=== PATIENT | male | born 1970 | race Two or more races ===

== ENCOUNTER → 2020-09-14 | Outpatient (CLI) | payer MEDICARE | END | disposition home or self-care (01) | LOC: MSC 13:30 | PROVIDERS: ATTEND Anesthesiology | DX: G89.4 Chronic pain syndrome (principal); M54.16 Radiculopathy, lumbar region; M79.606 Pain in leg, unspecified; M62.830 Muscle spasm of back; F11.20 Opioid dependence, uncomplicated ==

== ENCOUNTER → 2021-05-17 | Outpatient (CLI) | payer MEDICARE | END | disposition home or self-care (01) | LOC: MSC 10:25 | PROVIDERS: ATTEND Anesthesiology | DX: G89.4 Chronic pain syndrome (principal); M54.16 Radiculopathy, lumbar region; M62.830 Muscle spasm of back; M25.561 Pain in right knee; M25.562 Pain in left knee; M65.4 Radial styloid tenosynovitis [de Quervain]; F11.20 Opioid dependence, uncomplicated ==

== ENCOUNTER 2021-06-14 09:10 | Outpatient (CLI) | payer MEDICARE, MEDICAID | END 2021-06-14 23:59 | LOC: MSC 09:10 | PROVIDERS: ATTEND Anesthesiology | DX: G89.4 Chronic pain syndrome (principal); M25.561 Pain in right knee; M25.562 Pain in left knee; M54.16 Radiculopathy, lumbar region; M62.830 Muscle spasm of back; M79.606 Pain in leg, unspecified; M25.519 Pain in unspecified shoulder; M65.4 Radial styloid tenosynovitis [de Quervain]; F11.20 Opioid dependence, uncomplicated; Z76.0 Encounter for issue of repeat prescription; Z99.3 Dependence on wheelchair ==

== ENCOUNTER → 2021-07-12 | Outpatient (CLI) | payer MEDICARE, OTHER | LOC: MSC 10:20 | PROVIDERS: ATTEND Anesthesiology | DX: M65.4 Radial styloid tenosynovitis [de Quervain] (principal); G89.4 Chronic pain syndrome; M25.562 Pain in left knee; M25.561 Pain in right knee; M79.606 Pain in leg, unspecified; M54.16 Radiculopathy, lumbar region; M62.830 Muscle spasm of back; F11.20 Opioid dependence, uncomplicated ==

== ENCOUNTER 2021-08-16 09:25 | Outpatient (CLI) | payer MEDICARE, OTHER | END 2021-08-16 23:59 | LOC: MSC 09:25 | PROVIDERS: ATTEND Anesthesiology | DX: M54.16 Radiculopathy, lumbar region (principal); M62.830 Muscle spasm of back; G89.4 Chronic pain syndrome; M79.606 Pain in leg, unspecified; M25.561 Pain in right knee; M25.562 Pain in left knee; M65.4 Radial styloid tenosynovitis [de Quervain]; F11.20 Opioid dependence, uncomplicated ==

== ENCOUNTER → 2021-09-13 | Outpatient (CLI) | payer MEDICARE, OTHER | LOC: MSC 11:05 | PROVIDERS: ATTEND Anesthesiology | DX: G89.4 Chronic pain syndrome (principal); F11.20 Opioid dependence, uncomplicated; M54.16 Radiculopathy, lumbar region; M62.830 Muscle spasm of back; M25.561 Pain in right knee; M25.562 Pain in left knee; M79.606 Pain in leg, unspecified; M65.4 Radial styloid tenosynovitis [de Quervain] ==

== ENCOUNTER 2021-10-11 10:00 | Outpatient (CLI) | payer MEDICARE, OTHER | END 2021-10-11 23:59 | LOC: MSC 10:00 | PROVIDERS: ATTEND Anesthesiology | DX: G89.4 Chronic pain syndrome (principal); F11.20 Opioid dependence, uncomplicated; M54.16 Radiculopathy, lumbar region; M62.830 Muscle spasm of back; M79.606 Pain in leg, unspecified; M25.561 Pain in right knee; M25.562 Pain in left knee; M65.4 Radial styloid tenosynovitis [de Quervain]; S81.802A Unspecified open wound, left lower leg, initial encounter; S81.801A Unspecified open wound, right lower leg, initial encounter ==

== ENCOUNTER 2021-11-08 09:40 | Outpatient (CLI) | payer MEDICARE, OTHER | END 2021-11-08 23:59 | disposition home or self-care (01) | LOC: MSC 09:40 | PROVIDERS: ATTEND Anesthesiology | DX: G89.4 Chronic pain syndrome (principal); M25.561 Pain in right knee; M25.562 Pain in left knee; M79.606 Pain in leg, unspecified; M54.16 Radiculopathy, lumbar region; M62.830 Muscle spasm of back; F11.20 Opioid dependence, uncomplicated; M65.4 Radial styloid tenosynovitis [de Quervain] ==

== ENCOUNTER 2021-12-13 10:25 | Outpatient (CLI) | payer MEDICARE, OTHER | END 2021-12-13 23:59 | disposition home or self-care (01) | LOC: MSC 10:25 | PROVIDERS: ATTEND Anesthesiology | DX: G89.4 Chronic pain syndrome (principal); F11.20 Opioid dependence, uncomplicated; M54.16 Radiculopathy, lumbar region; M62.830 Muscle spasm of back; M25.561 Pain in right knee; M25.562 Pain in left knee; M79.606 Pain in leg, unspecified; M65.4 Radial styloid tenosynovitis [de Quervain] ==

== ENCOUNTER 2022-01-31 10:30 | Outpatient (CLI) | payer MEDICARE, OTHER | END 2022-01-31 23:59 | disposition home or self-care (01) | LOC: MSC 10:30 | PROVIDERS: ATTEND Anesthesiology | DX: G89.4 Chronic pain syndrome (principal); M25.561 Pain in right knee; M25.562 Pain in left knee; M54.16 Radiculopathy, lumbar region; M62.830 Muscle spasm of back; M65.4 Radial styloid tenosynovitis [de Quervain]; M79.606 Pain in leg, unspecified; F11.20 Opioid dependence, uncomplicated ==

== ENCOUNTER 2022-05-02 09:51 | Outpatient (CLI) | payer MEDICARE, OTHER | END 2022-05-02 23:59 | disposition home or self-care (01) | LOC: MSC 09:51 | PROVIDERS: ATTEND Anesthesiology | DX: M54.16 Radiculopathy, lumbar region (principal); M62.830 Muscle spasm of back; F11.20 Opioid dependence, uncomplicated; G89.4 Chronic pain syndrome; M79.606 Pain in leg, unspecified; M25.561 Pain in right knee; M25.562 Pain in left knee; M65.4 Radial styloid tenosynovitis [de Quervain] ==

== ENCOUNTER 2022-12-05 09:45 | Outpatient (CLI) | payer MEDICARE, OTHER | END 2022-12-05 23:59 | disposition home or self-care (01) | LOC: MSC 09:45 | PROVIDERS: ATTEND Anesthesiology | DX: G89.4 Chronic pain syndrome (principal); M54.16 Radiculopathy, lumbar region; M62.830 Muscle spasm of back; F11.20 Opioid dependence, uncomplicated; M79.606 Pain in leg, unspecified; M25.561 Pain in right knee; M25.562 Pain in left knee; M65.4 Radial styloid tenosynovitis [de Quervain] ==

== ENCOUNTER 2023-01-30 08:53 | Outpatient (CLI) | payer MEDICARE, OTHER | END 2023-01-30 23:59 | disposition home or self-care (01) | LOC: MSC 08:53 | PROVIDERS: ATTEND Anesthesiology | DX: G89.4 Chronic pain syndrome (principal); M54.16 Radiculopathy, lumbar region; M62.830 Muscle spasm of back; M25.561 Pain in right knee; M25.562 Pain in left knee; F11.20 Opioid dependence, uncomplicated; M79.606 Pain in leg, unspecified; M65.4 Radial styloid tenosynovitis [de Quervain] ==